=== PATIENT | male | born 1955 | race Caucasian/White ===

== ENCOUNTER 2017-02-22 13:57 | Emergency (ER) | payer SELFPAY ==
[2017-02-22] MEDS ORDERED: Cyclobenzaprine TAB* 10 MG PO ONE (18:18)
[2017-02-22] MEDS ORDERED: Ibuprofen TAB* 800 MG PO ONE (18:19)
--- NOTE | 2017-02-22 18:20 | ED ---
Back Pain - HPI Summary HPI Summary: 61M presents with back pain for 3 days. He was lifting stuff at work when he felt a pull on the right side of his back. He has not taken anything for pain but he says that his pain has been getting worst. He denies any numbness or tingling. He denies any loss of bowel or bladder or saddle anesthesia. He is still able at ambulate. He denies any pain down his leg or numbness or tingling. - History of Current Complaint Chief Complaint: EDBackInjuryPain Stated Complaint: SHARP BACK PAIN Time Seen by Provider: 02/22/17 17:44 Pain Intensity: 8 - Allergies/Home Medications Allergies/Adverse Reactions: Allergies Allergy/AdvReac Type Severity Reaction Status Date / Time No Known Allergies Allergy Verified 02/22/17 14:07 PMH/Surg Hx/FS Hx/Imm Hx Endocrine/Hematology History: Denies: Hx Anticoagulant Therapy Cardiovascular History: Denies: Hx Myocardial Infarction Respiratory History: Denies: Hx Asthma Infectious Disease History: No Infectious Disease History: Denies: Traveled Outside the [place] in Last 30 Days - Family History Known Family History: Positive: Hypertension - Social History Alcohol Use: Daily Substance Use Type: Reports: None Hx Tobacco Use: Yes Smoking Status (MU): Heavy Every Day Tobacco Smoker Review of Systems Negative: Fever Negative: Chest Pain Negative: Shortness Of Breath Positive: Myalgia - back pain All Other Systems Reviewed And Are Negative: Yes Physical Exam Triage Information Reviewed: Yes Vital Signs On Initial Exam: Initial Vitals Temp Pulse Resp BP Pulse Ox 98.9 F 101 18 147/77 98 02/22/17 14:07 02/22/17 14:07 02/22/17 14:07 02/22/17 14:07 02/22/17 14:07 Vital Signs Reviewed: Yes Appearance: Positive: Well-Appearing Skin: Positive: Warm, Dry Head/Face: Positive: Normal Head/Face Inspection Eyes: Positive: Normal, Conjunctiva Clear Respiratory/Lung Sounds: Positive: Clear to Auscultation, Breath Sounds Present Cardiovascular: Positive: Normal, RRR Musculoskeletal: Positive: Strength/ROM Intact - back, Other - no midline tenderness, tender to right side of back, good pulses, neg SLR Diagnostics - Vital Signs Vital Signs Temp Pulse Resp BP Pulse Ox 02/22/17 17:15 98.4 F 70 14 166/73 98 08/18/17 14:09 98.9 F 93 18 147/77 98 02/22/17 14:07 98.9 F 101 18 147/77 98 - Laboratory Lab Statement: Any lab studies that have been ordered have been reviewed, and results considered in the medical decision making process. Back Pain Course/Dx - Course Course Of Treatment: 61M presents with back pain for 3 days. He was lifting stuff at work when he felt a pull on the right side of his back. He has not taken anything for pain but he says that his pain has been getting worst. He denies any numbness or tingling. He denies any loss of bowel or bladder or saddle anesthesia. He is still able at ambulate. He denies any pain down his leg or numbness or tingling. on exam has tenderness on right side of back. no midline tenderness. wull treat with flexeril and ibuprofen. patient understands anad agrees with plan - Diagnoses Differential Diagnosis/HQI/PQRI: Positive: Herniated Disc, Strain, Sprain Provider Diagnoses: Back pain Discharge - Discharge Plan Condition: Good Disposition: HOME Prescriptions: Cyclobenzaprine TAB* [Flexeril 10 MG TAB*] 10 mg PO TID PRN #9 tab PRN Reason: Pain Ibuprofen TAB* [Motrin TAB* 800 MG] 800 mg PO Q8HR PRN #20 tab PRN Reason: Pain Patient Education Materials: Back Pain (ED) Referrals: [facility] [place] [facility] [Outside] Additional Instructions: Take muscle relaxers three times a day for 3 days Use ibuprofen or Tylenol for pain every 6 hours ice/heat area, move as much as possible Establish care with primary Return to ED if develop any new or worsening symptoms
[2017-02-22 18:51] VITALS: BP 169/80
== END 2017-02-22 18:56 | disposition home or self-care (01) ==
LOC: ED 13:57
DX: M54.9 Dorsalgia, unspecified (principal); F17.210 Nicotine dependence, cigarettes, uncomplicated
CPT/HCPCS: 99282; A9270-GY

== ENCOUNTER 2018-03-28 11:03 | Emergency (ER) | payer SELFPAY ==
[2018-03-28 11:12] VITALS: BP 160/85
--- NOTE | 2018-03-28 14:07 | ED ---
Throat Pain/Nasal Congestion - HPI Summary HPI Summary: URI sx x 2 days. RHinorrhea w/ nasal congestion and PND. Mild cough from PND. Nausea intermittently when swallows PND. Denies fever, chills, ST, vomiting. Smokes 1.5PPD, drinks ETOH daily No h/o PNA, sinus infections - History of Current Complaint Chief Complaint: EDUpperRespComplaint Time Seen by Provider: 03/28/18 11:49 Hx Obtained From: Patient - Allergies/Home Medications Allergies/Adverse Reactions: Allergies Allergy/AdvReac Type Severity Reaction Status Date / Time No Known Allergies Allergy Verified 03/28/18 11:08 PMH/Surg Hx/FS Hx/Imm Hx Endocrine/Hematology History: Denies: Hx Anticoagulant Therapy Cardiovascular History: Denies: Hx Myocardial Infarction Respiratory History: Denies: Hx Asthma Infectious Disease History: No Infectious Disease History: Denies: Traveled Outside the [place] in Last 30 Days - Family History Known Family History: Positive: Hypertension - Social History Alcohol Use: Daily Substance Use Type: Reports: None Hx Tobacco Use: Yes Smoking Status (MU): Heavy Every Day Tobacco Smoker Physical Exam Vital Signs On Initial Exam: Initial Vitals Temp Pulse Resp BP Pulse Ox 98.3 F 94 14 160/85 95 03/28/18 11:09 03/28/18 11:09 03/28/18 11:09 03/28/18 11:09 03/28/18 11:09 Diagnostics - Vital Signs Vital Signs Temp Pulse Resp BP Pulse Ox 03/28/18 11:09 98.3 F 94 14 160/85 95 - Laboratory Lab Statement: Any lab studies that have been ordered have been reviewed, and results considered in the medical decision making process. Discharge - Sign-Out/Discharge Documenting (check all that apply): Patient Departure - Discharge Plan Condition: Stable Disposition: HOME Patient Education Materials: Upper Respiratory Infection (ED) Forms: *Work Release Referrals: [facility] [Outside] Additional Instructions: Try the following to manage your symptoms: Nasal wash (netti pot or saline spray) Salt water throat gargles 2 x day Drink you body weight in ounces of water every day Sleep 8+ hours per night Avoid Dairy and sugar Hot herbal/decaf tea with lemon & honey Chicken broth (preferably organic, free range chicken) Humidifier in house, but especially near bed at night Keep home temperature at 68F or less to reduce dryness Use cough drops/throat lozenges Try a facial steam with or without eucalyptus essential oil or Timmy's Vapor rub for congestion Avoid smoke, candles, perfumes, colognes, scented soaps/detergents , air fresheners and cleaning chemicals as these can cause airway irritation and trigger coughing Start multivitamin If symptoms persist beyond 10-14 days or worsen , follow-up at [facility] - contact information provided here *If you develop fever, severe headache, neck stiffness, difficulty breathing return to the ED - Billing Disposition and Condition Condition: STABLE Disposition: Home
== END 2018-03-28 14:32 | disposition home or self-care (01) ==
LOC: ED 11:03
DX: J34.89 Other specified disorders of nose and nasal sinuses (principal); R09.81 Nasal congestion; F17.210 Nicotine dependence, cigarettes, uncomplicated
CPT/HCPCS: 99281

== ENCOUNTER 2022-11-21 11:05 | Inpatient (IN) ==
[2022-11-21] MEDS ORDERED: Lactated Ringers 1000 ml BAG 1,000 ML IV ONE ×3 (11:31→14:59)
[2022-11-21 11:57] LABS: ABS Eosinophils 0.1 10^3/uL (0.0-0.5); ABS Lymphocytes 0.8 10^3/uL (1.0-4.8); ABS Monocytes 0.4 10^3/uL (0.0-1.1); ABS Neutrophils 3.6 10^3/uL (1.5-7.6); ABS Nucleated RBC 0.01 10^3/ul; Eosinophil % 1.5 %; Hematocrit 44.9 % (38-53); Hemoglobin 15.3 g/dL (13.2-16.3); Lymphocyte % 15.6 %; Mean Corpuscular Hemoglobin 31.1 pg (27-33); Mean Corpuscular Volume 91.4 fL (80-97); Mean Platelet Volume 7.6 fL (7.5-11.2); Nucleated Red Blood Cells % 0.2 /100 WBC (0.0-0.4); Platelet Count 164 10^3/uL (150-450); Red Blood Count 4.91 10^6/uL (4.06-5.63); Red Cell Distribution Width 14.1 % (12-17); White Blood Count 4.8 10^3/uL (3.6-10.2)
[2022-11-21 12:06] LABS: Activated Partial Thrombo Time 34.3 seconds (26.0-38.0); INR 1.02 (0.88-1.18)
[2022-11-21 12:22] LABS: High Sens Troponin Baseline 3 pg/mL (<20)
[2022-11-21 13:13] LABS: ALT 37 U/L (7-52); AST 51 U/L (13-39); Albumin 3.6 g/dL (3.2-5.2); Albumin/Globulin Ratio 1.1 (1-3); Alcohol, S < 13 mg/dL (<13); Alkaline Phosphatase 116 U/L (35-149); Anion Gap 19 mmol/L (2-16); Blood Urea Nitrogen 12 mg/dL (6-24); C Reactive Protein 191.85 mg/L (<8.01); CO2 Carbon Dioxide 19 mmol/L (22-32); Chloride 91 mmol/L (101-111); Creatine Kinase 18 U/L (10-223); Creatinine, Serum 0.73 mg/dL (0.67-1.17); Globulin 3.3 g/dL (2-4); Glucose 136 mg/dL (70-100); Sodium 129 mmol/L (135-145); Total Protein 6.9 g/dL (6.4-8.9); eGFR CKD-EPI 99.1 (>60)
[2022-11-21 13:29] LABS: PCO2 Arterial 27 mmHg (35-45); PO2 Arterial 110 mmHg (80-100)
[2022-11-21 13:34] LABS: High Sensitivity Troponin 1 Hr < 3 pg/mL (<20)
[2022-11-21] MEDS ORDERED: Iohexol 350 (CONTRAST) 500 ML MDV IV ONE (15:05)
[2022-11-21] MEDS ORDERED: Lidocaine 2% JELLY 6 ML Topical TOPICAL ONE (16:29)
[2022-11-21 17:06] LABS: Urine Appearance Clear; Urine Bilirubin Negative (Negative); Urine Blood Negative (Negative); Urine Color Amber; Urine Glucose 1+(50 mg/dL) (Negative); Urine Ketones 1+ (Negative); Urine Nitrite Negative (Negative); Urine Protein 1+(30 mg/dL) (Negative); Urine Urobilinogen Positive (Negative)
[2022-11-21 17:15] LABS: Urine Bacteria Absent (Absent); Urine Red Blood Cell 2+(6-10/hpf) (Absent); Urine Squamous Epithelial Cell Present (Absent); Urine White Blood Cell 1+(6-10/hpf) (Absent)
[2022-11-21] MEDS ORDERED: cefTRIAXone 1 gm/50 mL D5W 1 GM/50 ML BAG IV ONE (17:35)
[2022-11-21 18:00] LABS: Urine Specific Gravity > 1.060 (1.002-1.030)
[2022-11-21] MEDS ORDERED: Polyethylene Glycol 3350 17 GM PACKET PO PRN (18:13)
[2022-11-21] MEDS ORDERED: Al Hydrox/Mg Hydrox/Simet LIQ 30 ML UDC PO PRN (18:13)
[2022-11-21] MEDS ORDERED: Ondansetron 4 mg VIAL 2 MG/ML 2 ml VIAL IV PRN (18:13)
[2022-11-21] MEDS ORDERED: Senna TAB 8.6 mg TAB PO PRN (18:13)
[2022-11-21 19:22] LABS: Magnesium 2.1 mg/dL (1.9-2.7)
[2022-11-21 20:03] LABS: TSH Ultra Thyroid Stim Horm 3.17 mcIU/mL (0.34-5.60)
[2022-11-21 20:14] LABS: Folate 9.82 ng/mL (5.90-24.80)
[2022-11-21 20:15] LABS: Vitamin B12 1265 pg/mL (180-914)
[2022-11-21 20:18] LABS: Vitamin D Total 25(OH) < 7.0 ng/mL (20-50)
[2022-11-21] MEDS ORDERED: Thiamine IV 100 MG/ML VIAL (only for Bannana Bags !) IVPB SCH (21:00)
[2022-11-21] MEDS: Thiamine IV 500 MG in NS 0.9% 250 ML (Wernicke-Korsakoff) IV SCH (22:48)
[2022-11-22] MEDS: Thiamine IV 500 MG in NS 0.9% 250 ML (Wernicke-Korsakoff) IV SCH ×3 (05:51→22:39)
[2022-11-22 06:32] LABS: ABS Eosinophils 0.1 10^3/uL (0.0-0.5); ABS Lymphocytes 0.8 10^3/uL (1.0-4.8); ABS Monocytes 0.3 10^3/uL (0.0-1.1); ABS Nucleated RBC 0.01 10^3/ul; Eosinophil % 2.8 %; Hematocrit 32.6 % (38-53); Hemoglobin 11.3 g/dL (13.2-16.3); Lymphocyte % 26.1 %; Mean Corpuscular Hemoglobin 31.1 pg (27-33); Mean Corpuscular Hgb Conc 34.6 g/dL (31-36); Mean Corpuscular Volume 89.9 fL (80-97); Mean Platelet Volume 7.3 fL (7.5-11.2); Nucleated Red Blood Cells % 0.3 /100 WBC (0.0-0.4); Platelet Count 136 10^3/uL (150-450); Red Blood Count 3.62 10^6/uL (4.06-5.63); Red Cell Distribution Width 13.6 % (12-17); White Blood Count 3.3 10^3/uL (3.6-10.2)
[2022-11-22 07:16] LABS: Albumin 2.5 g/dL (3.2-5.2); Albumin/Globulin Ratio 1.2 (1-3); Calcium 7.8 mg/dL (8.6-10.3); Creatinine, Serum 0.6 mg/dL (0.67-1.17); Globulin 2.1 g/dL (2-4); Magnesium 1.7 mg/dL (1.9-2.7); Potassium 3.4 mmol/L (3.5-5.0); Total Bilirubin 0.5 mg/dL (0.2-1.0); Total Protein 4.6 g/dL (6.4-8.9); eGFR CKD-EPI 105.1 (>60)
[2022-11-22] MEDS ORDERED: Magnesium Sulfate IV 3 GM in NS 0.9% 100 ml BAG 100 ML IVPB ONE (07:19)
[2022-11-22] MEDS ORDERED: Potassium Chlor 20 meq TAB.ER PO ONE (07:24)
[2022-11-22] MEDS: Nicotine PATCH 7 MG/24 HR PATCH TRANSDERM SCH (11:02)
[2022-11-23] MEDS: Thiamine IV 500 MG in NS 0.9% 250 ML (Wernicke-Korsakoff) IV SCH ×3 (05:12→21:52)
[2022-11-23 06:49] LABS: ABS Eosinophils 0.1 10^3/uL (0.0-0.5); ABS Lymphocytes 0.9 10^3/uL (1.0-4.8); ABS Monocytes 0.3 10^3/uL (0.0-1.1); ABS Neutrophils 2.9 10^3/uL (1.5-7.6); ABS Nucleated RBC 0.01 10^3/ul; Eosinophil % 2.7 %; Hematocrit 31.2 % (38-53); Hemoglobin 10.9 g/dL (13.2-16.3); Lymphocyte % 20.9 %; Mean Corpuscular Hemoglobin 31.4 pg (27-33); Mean Corpuscular Hgb Conc 34.8 g/dL (31-36); Mean Corpuscular Volume 90.4 fL (80-97); Mean Platelet Volume 7.4 fL (7.5-11.2); Nucleated Red Blood Cells % 0.1 /100 WBC (0.0-0.4); Platelet Count 147 10^3/uL (150-450); Red Blood Count 3.46 10^6/uL (4.06-5.63); Red Cell Distribution Width 13.6 % (12-17); White Blood Count 4.3 10^3/uL (3.6-10.2)
[2022-11-23 07:10] LABS: Calcium 7.8 mg/dL (8.6-10.3); Creatinine, Serum 0.49 mg/dL (0.67-1.17); Magnesium 1.8 mg/dL (1.9-2.7); eGFR CKD-EPI 111.8 (>60)
[2022-11-23] MEDS ORDERED: Magnesium Sulfate 2 gm BAG 2 GM/50 ML BAG IVPB ONE (07:17)
[2022-11-23] MEDS: Nicotine PATCH 7 MG/24 HR PATCH TRANSDERM SCH (11:14)
[2022-11-24] MEDS: Thiamine IV 500 MG in NS 0.9% 250 ML (Wernicke-Korsakoff) IV SCH (06:21)
[2022-11-24] MEDS: Nicotine PATCH 7 MG/24 HR PATCH TRANSDERM SCH (07:31)
[2022-11-24 16:48] LABS: Anaplasma phagocytophilum Negative (Negative); B. miyamotoi PCR, B Negative (Negative); Babesia divergens/MO-1 Negative (Negative); Babesia ducani Negative (Negative); Ehrlichia chaffeensis Negative (Negative); Ehrlichia ewingii/canis Negative (Negative); Ehrlichia muris eauclairensis Negative (Negative)
[2022-11-25] MEDS: Nicotine PATCH 7 MG/24 HR PATCH TRANSDERM SCH (09:49)
[2022-11-26 06:49] LABS: ABS Basophils 0.1 10^3/uL (0.0-0.1); ABS Eosinophils 0.1 10^3/uL (0.0-0.5); ABS Monocytes 0.5 10^3/uL (0.0-1.1); Eosinophil % 2.4 %; Hematocrit 29.3 % (38-53); Hemoglobin 10.3 g/dL (13.2-16.3); Lymphocyte % 21.8 %; Mean Corpuscular Hemoglobin 31.6 pg (27-33); Mean Corpuscular Hgb Conc 35.1 g/dL (31-36); Mean Corpuscular Volume 90.2 fL (80-97); Mean Platelet Volume 7.3 fL (7.5-11.2); Platelet Count 214 10^3/uL (150-450); Red Blood Count 3.24 10^6/uL (4.06-5.63); Red Cell Distribution Width 13.2 % (12-17); White Blood Count 4.7 10^3/uL (3.6-10.2)
[2022-11-26 07:04] LABS: C Reactive Protein 42.9 mg/L (<8.01); Calcium 8.2 mg/dL (8.6-10.3); Creatinine, Serum 0.48 mg/dL (0.67-1.17); Magnesium 1.6 mg/dL (1.9-2.7); Potassium 4.4 mmol/L (3.5-5.0); eGFR CKD-EPI 112.5 (>60)
[2022-11-26] MEDS ORDERED: Magnesium Sulfate 2 gm BAG 2 GM/50 ML BAG IVPB ONE (09:56)
[2022-11-26] MEDS ORDERED: NS 0.9% 1000 ml BAG 1,000 ML IV SCH (10:00)
[2022-11-26] MEDS: Nicotine PATCH 7 MG/24 HR PATCH TRANSDERM SCH (10:43)
[2022-11-27] MEDS: Nicotine PATCH 7 MG/24 HR PATCH TRANSDERM SCH (08:26)
[2022-11-27 14:47] LABS: Amphetamines Screen Blood None Detected; Cannabinoids Screen Blood None Detected; Cocaine Metabolites Screen Bl None Detected; Fentanyl/Acetyl FentanylScreen None Detected; Methadone Metabolites Scrn Bl None Detected; Methamphetamines/MDMA Screen None Detected; Opiates Screen Blood None Detected; Oxycodone/Oxymorphone Scrn Bl None Detected; Phencyclidine Screen Blood None Detected
[2022-11-28] MEDS: Nicotine PATCH 7 MG/24 HR PATCH TRANSDERM SCH (09:32)
[2022-11-28] MEDS: Enoxaparin 40 MG/0.4 ML SYR SUBCUT SCH (10:16)
[2022-11-28 11:15] LABS: Calcium 8.5 mg/dL (8.6-10.3); Creatinine, Serum 0.4 mg/dL (0.67-1.17); Magnesium 1.7 mg/dL (1.9-2.7); Potassium 3.9 mmol/L (3.5-5.0); eGFR CKD-EPI 118.8 (>60)
[2022-11-28] MEDS ORDERED: Magnesium Sulfate 2 gm BAG 2 GM/50 ML BAG IVPB ONE (11:28)
[2022-11-28] MEDS ORDERED: NS 0.9% 1000 ml BAG 1,000 ML IV SCH (11:45)
[2022-11-28 17:37] LABS: Urine Osmo 638 mOsm/kg (150-1150)
[2022-11-28 17:42] LABS: Osmolality Serum 265 mOsm/kg (275-295)
[2022-11-28 17:43] LABS: Calcium 7.8 mg/dL (8.6-10.3); Creatinine, Serum 0.49 mg/dL (0.67-1.17); Potassium 4.3 mmol/L (3.5-5.0); eGFR CKD-EPI 111.8 (>60)
[2022-11-29 07:11] LABS: ABS Eosinophils 0.1 10^3/uL (0.0-0.5); ABS Lymphocytes 0.7 10^3/uL (1.0-4.8); ABS Monocytes 0.7 10^3/uL (0.0-1.1); ABS Neutrophils 2.6 10^3/uL (1.5-7.6); Eosinophil % 1.5 %; Hematocrit 26.4 % (38-53); Hemoglobin 9.2 g/dL (13.2-16.3); Lymphocyte % 16.3 %; Mean Corpuscular Hemoglobin 31.5 pg (27-33); Mean Corpuscular Volume 89.9 fL (80-97); Mean Platelet Volume 6.4 fL (7.5-11.2); Platelet Count 220 10^3/uL (150-450); Red Blood Count 2.93 10^6/uL (4.06-5.63); Red Cell Distribution Width 13.9 % (12-17); White Blood Count 4.1 10^3/uL (3.6-10.2)
[2022-11-29 07:35] LABS: Calcium 7.8 mg/dL (8.6-10.3); Creatinine, Serum 0.44 mg/dL (0.67-1.17); Magnesium 1.8 mg/dL (1.9-2.7); Potassium 4.2 mmol/L (3.5-5.0); eGFR CKD-EPI 115.5 (>60)
[2022-11-29] MEDS: Enoxaparin 40 MG/0.4 ML SYR SUBCUT SCH (09:23)
[2022-11-29] MEDS: Nicotine PATCH 7 MG/24 HR PATCH TRANSDERM SCH (09:24)
[2022-11-30 06:39] LABS: Creatinine, Serum 0.37 mg/dL (0.67-1.17); Magnesium 1.8 mg/dL (1.9-2.7); Potassium 4.2 mmol/L (3.5-5.0); eGFR CKD-EPI 121.7 (>60)
[2022-11-30] MEDS ORDERED: Magnesium Sulfate 2 gm BAG 2 GM/50 ML BAG IVPB ONE (08:17)
[2022-11-30] MEDS: Nicotine PATCH 7 MG/24 HR PATCH TRANSDERM SCH (10:42)
[2022-11-30] MEDS: Enoxaparin 40 MG/0.4 ML SYR SUBCUT SCH (10:45)
[2022-11-30] MEDS ORDERED: PPD test dose 5 TU/0.1 ML TEST (*USE PPD ORDER SET*) INTRADERM SCH (12:00)
[2022-12-01] MEDS: Nicotine PATCH 7 MG/24 HR PATCH TRANSDERM SCH (09:53)
[2022-12-01] MEDS: Enoxaparin 40 MG/0.4 ML SYR SUBCUT SCH (09:53)
[2022-12-02 07:36] LABS: Calcium 8.5 mg/dL (8.6-10.3); Creatinine, Serum 0.33 mg/dL (0.67-1.17); Magnesium 1.7 mg/dL (1.9-2.7); Potassium 4.6 mmol/L (3.5-5.0)
[2022-12-02] MEDS: Nicotine PATCH 7 MG/24 HR PATCH TRANSDERM SCH (08:48)
[2022-12-02] MEDS: Enoxaparin 40 MG/0.4 ML SYR SUBCUT SCH (08:49)
[2022-12-02] MEDS ORDERED: PPD Reading NOTE 1 EA MISC ONE (12:00)
[2022-12-03] MEDS: Nicotine PATCH 7 MG/24 HR PATCH TRANSDERM SCH (09:54)
[2022-12-03] MEDS: Enoxaparin 40 MG/0.4 ML SYR SUBCUT SCH (09:54)
[2022-12-04] MEDS: Nicotine PATCH 7 MG/24 HR PATCH TRANSDERM SCH (08:36)
[2022-12-04] MEDS: Enoxaparin 40 MG/0.4 ML SYR SUBCUT SCH (08:37)
[2022-12-05] MEDS: Enoxaparin 40 MG/0.4 ML SYR SUBCUT SCH (10:15)
[2022-12-05] MEDS: Nicotine PATCH 7 MG/24 HR PATCH TRANSDERM SCH (10:15)
[2022-12-06] MEDS: Nicotine PATCH 7 MG/24 HR PATCH TRANSDERM SCH (09:55)
[2022-12-06] MEDS: Enoxaparin 40 MG/0.4 ML SYR SUBCUT SCH (09:55)
[2022-12-07] MEDS: Nicotine PATCH 7 MG/24 HR PATCH TRANSDERM SCH (09:30)
[2022-12-07] MEDS: Enoxaparin 40 MG/0.4 ML SYR SUBCUT SCH (09:30)
[2022-12-08] MEDS: Enoxaparin 40 MG/0.4 ML SYR SUBCUT SCH (09:43)
[2022-12-08] MEDS: Nicotine PATCH 7 MG/24 HR PATCH TRANSDERM SCH (09:44)
[2022-12-09] MEDS: Nicotine PATCH 7 MG/24 HR PATCH TRANSDERM SCH (10:06)
[2022-12-09] MEDS: Enoxaparin 40 MG/0.4 ML SYR SUBCUT SCH (10:06)
[2022-12-10] MEDS: Nicotine PATCH 7 MG/24 HR PATCH TRANSDERM SCH (07:24)
[2022-12-10] MEDS: Enoxaparin 40 MG/0.4 ML SYR SUBCUT SCH (09:26)
[2022-12-11] MEDS: Enoxaparin 40 MG/0.4 ML SYR SUBCUT SCH (10:02)
[2022-12-11] MEDS: Nicotine PATCH 7 MG/24 HR PATCH TRANSDERM SCH (10:03)
[2022-12-12 06:00] LABS: Calcium 9.1 mg/dL (8.6-10.3); Creatinine, Serum 0.55 mg/dL (0.67-1.17); Magnesium 1.8 mg/dL (1.9-2.7); Potassium 4.5 mmol/L (3.5-5.0); eGFR CKD-EPI 107.9 (>60)
[2022-12-12] MEDS: Nicotine PATCH 7 MG/24 HR PATCH TRANSDERM SCH (10:06)
[2022-12-12] MEDS: Enoxaparin 40 MG/0.4 ML SYR SUBCUT SCH (10:08)
[2022-12-13] MEDS: Enoxaparin 40 MG/0.4 ML SYR SUBCUT SCH (10:48)
[2022-12-13] MEDS: Nicotine PATCH 7 MG/24 HR PATCH TRANSDERM SCH (10:48)
[2022-12-13 12:49] LABS: ABS Eosinophils 0.2 10^3/uL (0.0-0.5); ABS Lymphocytes 1.3 10^3/uL (1.0-4.8); ABS Monocytes 0.9 10^3/uL (0.0-1.1); ABS Neutrophils 3.9 10^3/uL (1.5-7.6); Eosinophil % 2.9 %; Hematocrit 33.5 % (38-53); Hemoglobin 11.3 g/dL (13.2-16.3); Lymphocyte % 20.1 %; Mean Corpuscular Hemoglobin 31.2 pg (27-33); Mean Corpuscular Hgb Conc 33.8 g/dL (31-36); Mean Corpuscular Volume 92.2 fL (80-97); Mean Platelet Volume 6.4 fL (7.5-11.2); Nucleated Red Blood Cells % 0.1 /100 WBC (0.0-0.4); Platelet Count 393 10^3/uL (150-450); Red Blood Count 3.63 10^6/uL (4.06-5.63); Red Cell Distribution Width 16.6 % (12-17); White Blood Count 6.2 10^3/uL (3.6-10.2)
[2022-12-13 15:47] LABS: Ferritin 163.2 ng/mL (24-336)
[2022-12-14] MEDS: Enoxaparin 40 MG/0.4 ML SYR SUBCUT SCH (08:52)
[2022-12-14] MEDS: Nicotine PATCH 7 MG/24 HR PATCH TRANSDERM SCH (08:53)
[2022-12-15] MEDS: Enoxaparin 40 MG/0.4 ML SYR SUBCUT SCH (10:36)
[2022-12-15] MEDS: Nicotine PATCH 7 MG/24 HR PATCH TRANSDERM SCH (10:37)
[2022-12-16] MEDS: Nicotine PATCH 7 MG/24 HR PATCH TRANSDERM SCH (09:13)
[2022-12-16] MEDS: Enoxaparin 40 MG/0.4 ML SYR SUBCUT SCH (09:13)
[2022-12-17] MEDS: Nicotine PATCH 7 MG/24 HR PATCH TRANSDERM SCH (09:10)
[2022-12-17] MEDS: Enoxaparin 40 MG/0.4 ML SYR SUBCUT SCH (09:17)
[2022-12-18] MEDS: Nicotine PATCH 7 MG/24 HR PATCH TRANSDERM SCH (07:34)
[2022-12-18] MEDS: Enoxaparin 40 MG/0.4 ML SYR SUBCUT SCH (09:56)
[2022-12-18 17:52] LABS: Rapid COVID-19 Molecular Undetected (Undetected)
[2022-12-19] MEDS: Enoxaparin 40 MG/0.4 ML SYR SUBCUT SCH (08:40)
[2022-12-19] MEDS: Nicotine PATCH 7 MG/24 HR PATCH TRANSDERM SCH (08:43)
[2022-12-19 09:54] VITALS: BP 119/63
== END 2022-12-19 11:20 | DRG 640 ==
LOC: EDHOLD 11:05 → ED 11:05 → SUATTDRO 17:34 → OBSVTOIN 17:34 → SUATTDRO 18:14 → EDHOLD 20:11 → MED 20:37
PROVIDERS: ADMIT Hospitalist; ATTEND Internal Medicine